=== PATIENT | female | born 1980 | race Caucasian/White ===

== ENCOUNTER 2017-01-17 13:26 | Emergency (ER) | payer SELFPAY ==
[~2017-01-17] VITALS: Ht 157.5 cm; Wt 76.8 kg
[~2017-01-17 13:26] MED LIST: ACETTAB3 OR; ANUSOL-HC25 MG RE; BACTRIM DS1 TAB PO; BUSPIRONE10 MG PO; CELEXA40 M1 PO; CEPHALEXIN500 MG OR; CEPHALEXIN500 MG PO; CIPRO500 MG OR; CIPROFLOXACN500 MG PO; CORTISPORIN OTI10 ML AD; DESYREL50 MG PO; DOXYCYCL HYC100 MG PO; FIORICET OR; FLEXERIL OR; KLONOPIN1 MG PO; LORTAB 5 OR; LORTAB 7.5 OR; LORTAB5 PO; MOTRIN800 MG OR; NAPROSYN500 MG OR; NAPROSYN500 MG PO; NO HOME MEDS; PERCOCET 5/325M1 TAB PO; PHENERGAN25 MG/TAB PO; PRENATABS OR; PRENATAL3 PO; PROMETHAZINE25 MG PO; TEGRETOL200 MG PO; TRILEPTAL300 MG PO; TYLENOL # 31 TA1 PO; ULTRAM50 M1 PO; ULTRAM50 MG OR; VICODIN ES1 TAB OR; VISTARIL 50MG C50 M1 PO; ZITHROMAX250 MG PO
[2017-01-18] MEDS ORDERED: CIPROFLOXACN500 MG PO (01:59)
[2017-01-18] MEDS ORDERED: PERCOCET 5/325M1 TAB PO (01:59)
[2017-01-18 02:20] VITALS: BP 146/82
== END 2017-01-18 02:25 | disposition home or self-care (01) | DRG 605 ==
LOC: ED 13:26
PROC: 0HQ0XZZ Repair Scalp Skin, External Approach (ICD-10-PCS; principal; 2017-01-17)
DX: S01.01XA Laceration without foreign body of scalp, initial encounter (principal); F17.210 Nicotine dependence, cigarettes, uncomplicated; H66.90 Otitis media, unspecified, unspecified ear; Y08.09XA Assault by strike by other specified type of sport equipment, initial encounter; Y92.009 Unspecified place in unspecified non-institutional (private) residence as the place of occurrence of the external cause